=== PATIENT | female | born 1970 | race Asian ===

== ENCOUNTER 2019-07-22 11:27 | Day surgery (SDC) | payer BC ==
[2019-07-22] MEDS ORDERED: PROPOFOL 20 ML ×2 (15:23→15:47)
== END 2019-07-22 17:37 | disposition home or self-care (01) ==
LOC: GIL 11:27
DX: Z12.11 Encounter for screening for malignant neoplasm of colon (principal); I10 Essential (primary) hypertension
CPT/HCPCS: 45378; 84703